=== PATIENT | female | born 1985 | race Caucasian/White ===

== ENCOUNTER 2020-04-12 13:52 | Emergency (ER) | payer OTHER ==
[~2020-04-12] VITALS: Ht 170.2 cm; Wt 64.9 kg
== END 2020-04-12 19:38 | disposition home or self-care (01) ==
LOC: ER 13:52
DX: G89.11 Acute pain due to trauma (principal); G44.309 Post-traumatic headache, unspecified, not intractable; M54.2 Cervicalgia; Z03.818 Encounter for observation for suspected exposure to other biological agents ruled out